=== PATIENT | female | born 1975 | race Caucasian/White ===

== ENCOUNTER 2017-09-25 13:08 | Emergency (ER) | payer OTHER ==
--- NOTE | 2017-09-25 13:35 | ER Document Report ---
ED GI/ - General Chief Complaint: Abscess Stated Complaint: ABSCESS/VAGINAL AREA Time Seen by Provider: 09/25/17 13:35 Mode of Arrival: Ambulatory Information source: Patient Notes: 41-year-old female complaining of perineal mass and pain since Monday. It developed during her car ride between [place] and [place]. She then drove from [place] to [place] and came to the emergency room because she feels like it is getting larger and more painful. No fever or chills. No past medical history except for childbirth 10 months ago with no perineal tear. No injury to the perineum, no drainage. TRAVEL OUTSIDE OF THE [place] IN LAST 30 DAYS: No - Related Data Allergies/Adverse Reactions: erythromycin base Allergy (Verified 09/25/17 13:10) naproxen [From Naprosyn] Allergy (Verified 09/25/17 13:10) Past Medical History - General Information source: Patient - Social History Smoking Status: Never Smoker Frequency of alcohol use: None Drug Abuse: None Lives with: Family Family History: Reviewed & Not Pertinent - Medical History Medical History: Negative Surgical Hx: Negative Review of Systems - Review of Systems Constitutional: No symptoms reported EENT: No symptoms reported Cardiovascular: No symptoms reported Respiratory: No symptoms reported Gastrointestinal: No symptoms reported Genitourinary: No symptoms reported Female Genitourinary: See HPI Musculoskeletal: No symptoms reported Skin: No symptoms reported Hematologic/Lymphatic: No symptoms reported Neurological/Psychological: No symptoms reported Physical Exam - Vital signs Vitals: Temp Pulse Resp BP Pulse Ox 98.6 F 92 14 145/92 H 97 09/25/17 13:20 09/25/17 13:20 09/25/17 13:20 09/25/17 13:20 09/25/17 13:20 Interpretation: Normal - General General appearance: Appears well, Alert - HEENT Head: Normocephalic, Atraumatic Eyes: Normal Conjunctiva: Normal Pupils: PERRL Mucous membranes: Normal Pharynx: Normal Neck: Supple - Respiratory Respiratory status: No respiratory distress Chest status: Nontender Breath sounds: Normal Chest palpation: Normal - Cardiovascular Rhythm: Regular Heart sounds: Normal auscultation Murmur: No - Abdominal Inspection: Normal Distension: No distension Bowel sounds: Normal Tenderness: Nontender. No: Tender Organomegaly: No organomegaly - Genitourinary External exam: Other - bulging, tender, red, perineum with most tender, darker red left mid perineum, feels multilocular, no anal swellikng or abscess, no intravaginal source palpated either - Back Back: Normal, Nontender. No: CVA tenderness - Extremities General upper extremity: Normal inspection, Nontender, Normal color, Normal ROM , Normal temperature General lower extremity: Normal inspection, Nontender, Normal color, Normal ROM , Normal temperature, Normal weight bearing. No: Juan's sign - Neurological Neuro grossly intact: Yes Cognition: Normal Orientation: AAOx4 Leann Coma Scale Eye Opening: Spontaneous Wing Coma Scale Verbal: Oriented Wing Coma Scale Motor: Obeys Commands Leann Coma Scale Total: 15 Speech: Normal Motor strength normal: LUE, RUE, LLE, RLE Sensory: Normal - Psychological Associated symptoms: Normal affect, Normal mood - Skin Skin Temperature: Warm Skin Moisture: Dry Skin Color: Normal Course - Re-evaluation Re-evalutation: 09/25/17 15:46 Dr[address] Medel and Dr. Astudillo evaluated the patient and the recommendation is to send her to [facility] per Dr. Medel because of where this abscess and mass is and they have [employer] her cell phone number [phone] if the [facility] CE[facility] WORK[facility] at [facility] needs to talk with her. 09/25/17 16:[address] [facility] obgyn will accept the pt. ED to ED, OBGYN resident to be called when she arrives. 09/25/17 16:39 Family is available for transport by BLS she will be fine with no IV fluid running I will give her something for pain now and another 500 ml bolus prior to leaving the emergency department. 09/25/17 19.22 vitals stable, pt will be transferred via friendly with saline lock in place. Pt stable for transport. - Vital Signs Vital signs: Temp Pulse Resp BP Pulse Ox 98.3 F 81 16 133/73 H 96 09/25/17 17:26 09/25/17 17:26 09/25/17 17:26 09/25/17 17:26 09/25/17 17:26 - Laboratory Result Diagrams: 09/25/17 14:49 09/25/17 14:49 Laboratory results interpreted by me: 09/25/17 09/25/17 14:49 14:49 WBC 11.3 H Seg Neutrophils % 80.9 H Lymphocytes % 11.2 L Absolute Neutrophils 9.1 H Chloride 108 H Discharge - Discharge Clinical Impression: Perianal abscess Condition: Fair Disposition: [facility]
[2017-09-25] MEDS ORDERED: ONDANSETRON HCL INJ/PF 4 MG/2 ML SDV IV ONE (14:06)
[2017-09-25] MEDS ORDERED: MORPHINE SULFATE 10 MG/ML INJ IV ONE ×2 (14:06→16:41)
[2017-09-25] MEDS ORDERED: NORMAL SALINE 1000 ML 1,000 ML IV ONE (14:07)
[2017-09-25] MEDS ORDERED: NORMAL SALINE 1000 ML 500 ML IV ONE ×2 (14:07→16:40)
[2017-09-25] MEDS ORDERED: CEFTRIAXONE INJ 1000 MG VIAL IV ONE (14:08)
[2017-09-25 15:05] LABS: ABSOLUTE EOSINOPHILS # (AUTO) 0.2 10^3/uL (0.0-0.6); ABSOLUTE LYMPHOCYTES (AUTO) 1.3 10^3/uL (0.5-4.7); ABSOLUTE MONOCYTES (AUTO) 0.7 10^3/uL (0.1-1.4); ABSOLUTE NEUT (AUTO) 9.1 10^3/uL (1.7-8.2); BASOPHILS % (AUTO) 0.3 % (0-2); EOSINOPHILS % (AUTO) 1.5 % (0-6); HEMATOCRIT 36.9 % (36.0-47.0); HEMOGLOBIN 12.9 g/dL (12.0-15.5); LYMPHOCYTES % (AUTO) 11.2 % (13-45); MEAN CORPUSCULAR HEMOGLOBIN 33.1 pg (27.0-33.4); MEAN CORPUSCULAR HGB CONC 34.9 g/dL (32.0-36.0); MEAN CORPUSCULAR VOLUME 95 fl (80-97); MONOCYTES % (AUTO) 6.1 % (3-13); PLATELET COUNT 183 10^3/uL (150-450); RED BLOOD COUNT 3.88 10^6/uL (3.72-5.28); RED CELL DISTRIBUTION WIDTH 13.3 % (11.5-14.0); SEGMENTED NEUTROPHILS % (AUTO) 80.9 % (42-78); TOTAL CELLS COUNTED % (AUTO) 100 %; WHITE BLOOD COUNT 11.3 10^3/uL (4.0-10.5)
[2017-09-25 15:26] LABS: ALANINE AMINOTRANSFERASE 19 U/L (9-52); ALBUMIN 3.7 g/dL (3.5-5.0); ALKALINE PHOSPHATASE 82 U/L (38-126); ANION GAP 12 (5-19); ASPARTATE AMINO TRANSFERASE 16 U/L (14-36); BILIRUBIN,DIRECT 0.3 mg/dL (0.0-0.4); BILIRUBIN,TOTAL 0.7 mg/dL (0.2-1.3); BLOOD UREA NITROGEN 14 mg/dL (7-20); CARBON DIOXIDE 22 mmol/L (22-30); CHLORIDE 108 mmol/L (98-107); GLUCOSE 91 mg/dL (75-110); POTASSIUM 4.3 mmol/L (3.6-5.0); SODIUM 142.3 mmol/L (137-145)
--- NOTE | 2017-09-25 15:54 | PDOC CONSULTATION ---
Consultation Consult Date: 09/25/17 Attending physician:: JASON BERMUDEZ Consult reason:: perineal abscess History of Present Illness Admission Date/PCP: Currently in ER Patient complains of: perineal pain History of Present Illness: KATY COELLO is a 41 year old female who delivered baby approx 10 months ago. She reports long haul trip from [place] to [facility] and back here over the last couple of days. She has been having worsening perineal pain since beginning this trip. She reports trying supp for what she thought was a hemorrhoid with not relief. Denies f/n/v. Past Medical History Gynecological Infection: No Social History Information Source: Patient Lives with: Family Smoking Status: Never Smoker Frequency of Alcohol Use: None Hx Recreational Drug Use: No Drugs: None Hx Prescription Drug Abuse: No Family History Family History: None Parental Family History Reviewed: No Children Family History Reviewed: NA Sibling(s) Family History Reviewed.: NA Medication/Allergy Allergies/Adverse Reactions: erythromycin base Allergy (Verified 09/25/17 13:10) naproxen [From Naprosyn] Allergy (Verified 09/25/17 13:10) Review of Systems Constitutional: ABSENT: chills, fever(s), headache(s), weight gain, weight loss Cardiovascular: ABSENT: chest pain, dyspnea on exertion, edema, orthropnea, palpitations Respiratory: PRESENT: as per HPI Gastrointestinal: ABSENT: abdominal pain, constipation, diarrhea, hematemesis, hematochezia, nausea, vomiting Genitourinary: ABSENT: dysuria, hematuria Musculoskeletal: ABSENT: joint swelling Integumentary: ABSENT: rash, wounds Neurological: PRESENT: as per HPI. ABSENT: abnormal gait, abnormal speech, confusion, dizziness, focal weakness, syncope Hematologic/Lymphatic: ABSENT: easy bleeding, easy bruising Physical Exam - Physical Exam Vital Signs: Temp Pulse Resp BP Pulse Ox 98.6 F 92 14 145/92 H 97 09/25/17 13:20 09/25/17 13:20 09/25/17 13:20 09/25/17 13:20 09/25/17 13:20 Intake & Output 09/24/17 09/25/17 09/26/17 06:59 06:59 06:59 Intake Total 500 Balance 500 Weight 115 kg General appearance: PRESENT: no acute distress, well-developed, well-nourished GI/Abdominal exam: PRESENT: normal bowel sounds, soft. ABSENT: distended, guarding, mass, organolmegaly, rebound, tenderness Rectal exam: PRESENT: black stool, mass, normal rectal tone, tenderness. ABSENT : fecal impaction, hemorrhoids, laceration Gentrourinary exam: PRESENT: erythema, other - fullness in mid perineal area and appears to have an abscess of perineal body that on palpation does extend just to rectum but does not invade rectum - abscess appears to extend several centimeters up the rv plane. + erythema of perineum and warmth, no induration and no crepitus. ABSENT: lesions Extremities exam: PRESENT: full ROM. ABSENT: calf tenderness, clubbing, pedal edema Neurological exam: PRESENT: alert, awake, oriented to person, oriented to place , oriented to time, oriented to situation, CN II-XII grossly intact. ABSENT: motor sensory deficit Psychiatric exam: PRESENT: appropriate affect, normal mood. ABSENT: homicidal ideation, suicidal ideation Skin exam: PRESENT: dry, intact, warm. ABSENT: cyanosis, rash Result Laboratory Results: 09/25/17 14:49 09/25/17 14:49 09/25/17 09/25/17 14:49 14:49 WBC 11.3 H RBC 3.88 Hgb 12.9 Hct 36.9 MCV 95 MCH 33.1 MCHC 34.9 RDW 13.3 Plt Count 183 Seg Neutrophils % 80.9 H Lymphocytes % 11.2 L Monocytes % 6.1 Eosinophils % 1.5 Basophils % 0.3 Absolute Neutrophils 9.1 H Absolute Lymphocytes 1.3 Absolute Monocytes 0.7 Absolute Eosinophils 0.2 Absolute Basophils 0.0 Sodium 142.3 Potassium 4.3 Chloride 108 H Carbon Dioxide 22 Anion Gap 12 BUN 14 Creatinine 0.83 Est GFR ( Amer) > 60 Est GFR (Non-Af Amer) > 60 Glucose 91 Calcium 9.0 Total Bilirubin 0.7 AST 16 ALT 19 Alkaline Phosphatase 82 Total Protein 7.0 Albumin 3.7 Assessment & Plan - Diagnosis (1) Abscess, perineum Is this a current diagnosis for this admission?: Yes Plan: abbscess feels deep and unable to find source. Appears to juxtapose the rectum but does not invade rectum. Concern for poss deep extent of surgical plane that abscess could involve. Does not appear to be perirectal abscess. Dr. Astudillo here to evaluate patient as well. Concern for need for IV abx and possible need for surgical intervention in conjuction UPHOLSTERY TECH ONC/Colorectal surgery if needed due to extent of abscess. Would also recommend US or CT scan to evaluate location and extent. However, since need for transfer would likely need to have those done at transferring facility. Possible need for drainage by IR if able to reach on CT scan. UPHOLSTERY TECH/ONC, COlorectal Surgery, IR and Infectious disease (if needed) are not available at this location. Recommend transfer to [facility] if possible - Time Time Spent: 30 to 50 Minutes Medications reviewed and adjusted accordingly: No Anticipated discharge: Alistair Thomas Within: within 24 hours - Inpatient Certification Based on my medical assessment, after consideration of the patient's comorbidities, presenting symptoms, or acuity I expect that the services needed warrant INPATIENT care.: Yes I certify that my determination is in accordance with my understanding of Medicare's requirements for reasonable and necessary INPATIENT services [42 CFR 412.3e].: Yes Medical Necessity: Need for IV Antibiotics, Need for Surgery 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
--- NOTE | 2017-09-25 16:47 | PDOC CONSULTATION ---
Consultation Consult Date: 09/25/17 Attending physician:: HALLEY HELLER Consult reason:: Perineal pain History of Present Illness History of Present Illness: KATY COELLO is a 41 year old female Presents the emergency department with approximately 3 day history of pain on defecation, swelling, but no discharge and no fever. She denies history of trauma. Patient was evaluated in the emergency department and found to have swelling, redness and tenderness over the right perineal body. No imaging studies were obtained. Surgery and [employer] were consulted. Patient denies history of gynecologic or perianal pathology, history of gastrointestinal problems inflammatory bowel disease etc. patient is status post delivery 10 months ago. Past Medical History Medical History: None Past Surgical History Past Surgical History: Reports: None, Orthopedic Surgery - Lt knee; Rt foot Social History Lives with: Family Smoking Status: Never Smoker Frequency of Alcohol Use: None Hx Recreational Drug Use: No Drugs: None Hx Prescription Drug Abuse: No Family History Family History: None Parental Family History Reviewed: Yes Children Family History Reviewed: Yes Sibling(s) Family History Reviewed.: Yes Medication/Allergy Home Medications: No Home Medications 09/25/17 Allergies/Adverse Reactions: erythromycin base Allergy (Verified 09/25/17 13:10) naproxen [From Naprosyn] Allergy (Verified 09/25/17 13:10) Review of Systems Constitutional: PRESENT: as per HPI Eyes: ABSENT: visual disturbances Ears: ABSENT: hearing changes Cardiovascular: ABSENT: chest pain, dyspnea on exertion, edema, orthropnea, palpitations Genitourinary: ABSENT: dysuria, hematuria Musculoskeletal: ABSENT: joint swelling Physical Exam Vital Signs: Temp Pulse Resp BP Pulse Ox 98.6 F 92 14 145/92 H 97 09/25/17 16:03 09/25/17 16:03 09/25/17 16:03 09/25/17 16:03 09/25/17 16:03 Intake & Output 09/24/17 09/25/17 09/26/17 06:59 06:59 06:59 Intake Total 500 Balance 500 Weight 115 kg General appearance: PRESENT: mild distress Head exam: PRESENT: normocephalic Eye exam: PRESENT: EOMI Mouth exam: PRESENT: dry mucosa Respiratory exam: PRESENT: clear to auscultation drake Cardiovascular exam: PRESENT: RRR Pulses: PRESENT: normal carotid pulses, normal femoral pulses Rectal exam: PRESENT: other - She is examined the left lateral decubitus position, right side up the knees to chest. Perineum examined. There is generalized swelling and erythema, with a point focus of tenderness along the right perineal body. The perianal tissue is mildly edematous; however the labia majora are more swollen Results Laboratory Results: 09/25/17 14:49 09/25/17 14:49 09/25/17 09/25/17 14:49 14:49 WBC 11.3 H RBC 3.88 Hgb 12.9 Hct 36.9 MCV 95 MCH 33.1 MCHC 34.9 RDW 13.3 Plt Count 183 Seg Neutrophils % 80.9 H Lymphocytes % 11.2 L Monocytes % 6.1 Eosinophils % 1.5 Basophils % 0.3 Absolute Neutrophils 9.1 H Absolute Lymphocytes 1.3 Absolute Monocytes 0.7 Absolute Eosinophils 0.2 Absolute Basophils 0.0 Sodium 142.3 Potassium 4.3 Chloride 108 H Carbon Dioxide 22 Anion Gap 12 BUN 14 Creatinine 0.83 Est GFR ( Amer) > 60 Est GFR (Non-Af Amer) > 60 Glucose 91 Calcium 9.0 Total Bilirubin 0.7 AST 16 ALT 19 Alkaline Phosphatase 82 Total Protein 7.0 Albumin 3.7 Assessment & Plan - Diagnosis (1) Abscess, perineum Is this a current diagnosis for this admission?: Yes Plan: Patient's physical exam findings and laboratory profile consistent with perineal sepsis likely from perineal body infection; doubt this represents perianal infection. She was reviewed with nurse practitioner, and [facility] INSERTER physician emergency department. Recommendations: 1. Agree with plans to transfer patient higher level of care for additional support of this potentially complex soft tissue infection. - Time Time Spent: 30 to 50 Minutes Smoking Cessation Education: 3 to 10 minutes Medications reviewed and adjusted accordingly: Yes Anticipated discharge: Home - Inpatient Certification Based on my medical assessment, after consideration of the patient's comorbidities, presenting symptoms, or acuity I expect that the services needed warrant INPATIENT care.: Yes I certify that my determination is in accordance with my understanding of Medicare's requirements for reasonable and necessary INPATIENT services [42 CFR 412.3e].: Yes Medical Necessity: Need For IV Fluids
[2017-09-25 17:28] VITALS: BP 133/73
== END 2017-09-25 17:26 | disposition short-term general hospital (02) ==
LOC: ER 13:08
DX: K61.0 Anal abscess (principal); Z88.1 Allergy status to other antibiotic agents; Z88.8 Allergy status to other drugs, medicaments and biological substances
CPT/HCPCS: 96376; 99285; 96361; 96375; 96365; 36415; 85025; 80053; J2270; J0696; J2405; J7030